=== PATIENT | female | born 1945 | race Caucasian/White ===

== ENCOUNTER 2021-11-08 11:13 | Inpatient (IN) | payer MEDICARE ==
[~2021-11-08] VITALS: Ht 165.1 cm; Wt 66.8 kg
[2021-11-08 11:38] LABS: BASOPHILS % (AUTO) 0.1 % (0-1); EOSINOPHILS % (AUTO) 0.1 % (0-6); HEMATOCRIT 35.1 % (35.0-45.0); HEMOGLOBIN 11.8 g/dl (12.0-16.0); LYMPHOCYTES # (AUTO) 0.5 X10'3 (1.1-4.8); LYMPHOCYTES % (AUTO) 5.2 % (21-51); MEAN CORPUSCULAR HEMOGLOBIN 30.6 PG (27.0-31.0); MEAN CORPUSCULAR HGB CONC 33.7 g/dL (33.0-36.5); MEAN CORPUSCULAR VOLUME 90.8 FL (78-98); MEAN PLATELET VOLUME 6.3 FL (7.4-10.4); MONOCYTES # (AUTO) 1.1 X10'3 (0-0.9); MONOCYTES % (AUTO) 10.9 % (2-12); NEUTROPHILS # (AUTO) 8.7 X10'3 (1.8-7.7); NEUTROPHILS % (AUTO) 83.7 % (42-75); PLATELET COUNT 198 X10'3 (140-440); RED BLOOD COUNT 3.87 X10'6 (4.20-5.60); RED CELL DISTRIBUTION WIDTH 13.1 % (11.5-14.5); WHITE BLOOD COUNT 10.3 X10'3 (4.5-11.0)
[2021-11-08] MEDS ORDERED: metoprolol tartrate 1mg/ml inj IV ONE (11:55)
--- NOTE | 2021-11-08 11:57 | NUR ---
FAMILY CALLED AND LEFT PHONE NUMBER CARYLN: [phone]
[2021-11-08 12:04] LABS: ALANINE AMINOTRANSFERASE 26 U/L (12-78); ALBUMIN 3.8 G/DL (3.4-5.0); ALKALINE PHOSPHATASE 96 IU/L (46-116); ANION GAP 12 (8-16); ASPARTATE AMINO TRANSFERASE 35 U/L (10-37); BILIRUBIN,TOTAL 0.7 MG/DL (0.1-1.0); BLOOD UREA NITROGEN 11 MG/DL (7-18); CALCIUM 9.2 MG/DL (8.5-10.1); CHLORIDE 91 MMOL/L (99-107); CREATININE 0.92 MG/DL (0.40-0.90); D-DIMER 0.54 MG/L FEU (0-0.50); GLUCOSE 137 MG/DL (70-104); POTASSIUM 4.6 MMOL/L (3.5-5.1); SODIUM 125 MMOL/L (135-145); TOTAL PROTEIN 7.7 G/DL (6.4-8.2); eGFR 60 ML/MIN
--- NOTE | 2021-11-08 14:05 | NUR ---
TIMOTHY PEDRO AT BEDSIDE TO ASSESS PATIENT.
[2021-11-08] MEDS ORDERED: magnesium Cl slow-release 64mg tablet PO PRN (14:30)
[2021-11-08] MEDS ORDERED: PERFLUTREN PROTEIN-A MICROSPHR (Optison) 0.22 MG/ML 3ML VIAL IV ONE (14:30)
[2021-11-08] MEDS ORDERED: ondansetron/PF 4mg/2ml inj IV PRN (14:30)
[2021-11-08] MEDS ORDERED: magnesium 2GM in 50ml NS 50 ML IV PRN (14:30)
[2021-11-08] MEDS ORDERED: magnesium hydroxide 30ml (MOM) UD suspension PO PRN (14:30)
[2021-11-08] MEDS ORDERED: acetaminophen 325mg tablet PO PRN (14:30)
[2021-11-08] MEDS ORDERED: mag hydrox/Alum hydrox/simeth 30ml oral suspension PO PRN (14:30)
[2021-11-08] MEDS ORDERED: magnesium 4gm in 100ml NS 100 ML IV PRN (14:30)
[2021-11-08] MEDS ORDERED: potassium CL 10mEq/100ml bag 100 ML IV PRN (14:30)
[2021-11-08] MEDS ORDERED: morphine 2 MG/ML inj. syringe IV PRN (14:30)
[2021-11-08] MEDS ORDERED: potassium Cl 20 mEq SR tablet PO PRN ×2 (14:30)
[2021-11-08] MEDS ORDERED: LISI5TAB22 PO (14:42)
[2021-11-08] MEDS ORDERED: FLUT1BLS4 IH (14:42)
[2021-11-08] MEDS ORDERED: IPRA3AMP31 NEB (14:42)
[2021-11-08] MEDS ORDERED: ipratropium/albuterol 3ml nebule NEB PRN (14:45)
[2021-11-08] MEDS ORDERED: aspirin 81mg tab.chew PO ONE (14:45)
[2021-11-08] MEDS ORDERED: furosemide 20 MG/2 ML vial IV ONE (14:55)
[2021-11-08] MEDS ORDERED: heparin 25,000 UNIT/250ml bag 250 ML IV SCH (15:05)
[2021-11-08] MEDS ORDERED: heparin 10,000 units/1 ML INJ IV ONE (15:05)
[2021-11-08] MEDS ORDERED: heparin 10,000 units/1 ML INJ IV PRN (15:05)
[2021-11-08 15:17] LABS: CHOLESTEROL 217 MG/DL (0-200); HDL CHOLESTEROL 108 MG/DL (35-60); LDL CHOLESTEROL 96 MG/DL (50-100); TRIGLYCERIDES 36 MG/DL (20-135)
[2021-11-08 15:24] LABS: BASOPHILS % (AUTO) 0.1 % (0-1); EOSINOPHILS % (AUTO) 0.3 % (0-6); HEMATOCRIT 32.5 % (35.0-45.0); HEMOGLOBIN 10.9 g/dl (12.0-16.0); LYMPHOCYTES # (AUTO) 0.5 X10'3 (1.1-4.8); LYMPHOCYTES % (AUTO) 7.6 % (21-51); MEAN CORPUSCULAR HGB CONC 33.4 g/dL (33.0-36.5); MEAN CORPUSCULAR VOLUME 89.7 FL (78-98); MEAN PLATELET VOLUME 6.7 FL (7.4-10.4); MONOCYTES # (AUTO) 0.9 X10'3 (0-0.9); MONOCYTES % (AUTO) 12.8 % (2-12); NEUTROPHILS # (AUTO) 5.6 X10'3 (1.8-7.7); NEUTROPHILS % (AUTO) 79.2 % (42-75); PLATELET COUNT 171 X10'3 (140-440); RED BLOOD COUNT 3.63 X10'6 (4.20-5.60); RED CELL DISTRIBUTION WIDTH 13.5 % (11.5-14.5); WHITE BLOOD COUNT 7.1 X10'3 (4.5-11.0)
[2021-11-08 15:36] LABS: APTT 29 SECONDS (22-32)
[2021-11-08] MEDS: ipratropium/albuterol 3ml nebule IH SCH ×2 (16:51→20:14)
--- NOTE | 2021-11-08 18:15 | NUR ---
Patient in room PCU 3016. I have received report from MYLA Webb and had the opportunity to ask questions and assume patient care.
[2021-11-08] MEDS: docusate sod 100mg capsule PO SCH (19:48)
[2021-11-08] MEDS: K and/or MAG REPLACEMENT MC SCH (20:00)
[2021-11-08] MEDS: budesonide 0.5mg/2ml UD nebule IH SCH (20:14)
[2021-11-09] MEDS: ipratropium/albuterol 3ml nebule IH SCH ×4 (03:00→20:51)
[2021-11-09 06:00] VITALS: BP 131/65
[2021-11-09 06:38] LABS: BASOPHILS % (AUTO) 0.3 % (0-1); EOSINOPHILS # (AUTO) 0.2 X10'3 (0-0.9); EOSINOPHILS % (AUTO) 2.8 % (0-6); HEMATOCRIT 32.6 % (35.0-45.0); LYMPHOCYTES # (AUTO) 0.7 X10'3 (1.1-4.8); LYMPHOCYTES % (AUTO) 12.7 % (21-51); MEAN CORPUSCULAR HEMOGLOBIN 30.4 PG (27.0-31.0); MEAN CORPUSCULAR HGB CONC 33.9 g/dL (33.0-36.5); MEAN CORPUSCULAR VOLUME 89.8 FL (78-98); MEAN PLATELET VOLUME 6.6 FL (7.4-10.4); MONOCYTES # (AUTO) 0.7 X10'3 (0-0.9); MONOCYTES % (AUTO) 12.9 % (2-12); NEUTROPHILS % (AUTO) 71.3 % (42-75); PLATELET COUNT 190 X10'3 (140-440); RED BLOOD COUNT 3.63 X10'6 (4.20-5.60); RED CELL DISTRIBUTION WIDTH 13.2 % (11.5-14.5); WHITE BLOOD COUNT 5.7 X10'3 (4.5-11.0)
--- NOTE | 2021-11-09 06:39 | NUR ---
Problems reprioritized. Patient report given, questions answered & plan of care reviewed with Tracey RN.
[2021-11-09 06:53] LABS: ALBUMIN 3.2 G/DL (3.4-5.0); ANION GAP 6 (8-16); BLOOD UREA NITROGEN 16 MG/DL (7-18); CALCIUM 8.9 MG/DL (8.5-10.1); CHLORIDE 97 MMOL/L (99-107); CREATININE 0.84 MG/DL (0.40-0.90); GLUCOSE 106 MG/DL (70-104); POTASSIUM 4.4 MMOL/L (3.5-5.1); SODIUM 132 MMOL/L (135-145); TOTAL CARBON DIOXIDE 29.5 MMOL/L (24-32); eGFR 66 ML/MIN
[2021-11-09] MEDS: budesonide 0.5mg/2ml UD nebule IH SCH ×2 (07:47→20:51)
[2021-11-09] MEDS: lisinopril 5mg tablet PO SCH (07:54)
[2021-11-09] MEDS: aspirin 81mg, enteric-coated 1 TAB TABLET.DR PO SCH (07:54)
[2021-11-09] MEDS: docusate sod 100mg capsule PO SCH ×2 (07:54→20:13)
[2021-11-09] MEDS: K and/or MAG REPLACEMENT MC SCH ×2 (08:00→20:00)
[2021-11-09] MEDS ORDERED: lisinopril 5mg tablet PO SCH (08:00)
[2021-11-09] MEDS: spironolactone 25 MG tablet PO SCH (08:30)
[2021-11-09] MEDS ORDERED: verapamil 2.5 mg/ml inj IV ONE (09:13)
[2021-11-09] MEDS ORDERED: iohexol 350 MG/ML 50ML vial IV ONE (09:14)
[2021-11-09] MEDS ORDERED: LIDOcaine 1% (10mg/ml)w/preservative inj. 20ml MDV ONE (09:14)
[2021-11-09] MEDS ORDERED: midazolam 1 mg/ML 2ml injection ONE (09:14)
[2021-11-09] MEDS ORDERED: fentaNYL/PF 50MCG/1 ML 2ML syringe ONE (09:14)
[2021-11-09] MEDS ORDERED: nitroGLYCERIN-Tridil 50MG/D5W 250 ML IV ONE (09:14)
[2021-11-09] MEDS ORDERED: iohexol 350MG/ML 100ml bottle IV ONE (09:14)
[2021-11-09] MEDS ORDERED: heparin 1,000unit/ml 10ml vial 10 ML ONE (09:14)
[2021-11-09 11:00] VITALS: BP 134/56
[2021-11-09 11:42] LABS: ISTAT HGB ART 9.9 g/dl (12.0-16.0); ISTAT Hct ART 29 %PCV (35-48); ISTAT Hct MIX 30 %PCV (35-48); ISTAT O2 SATURATION ARTERIAL 99 % (95-98); ISTAT O2 SATURATION MIX VENOUS 73 % (60-80); ISTAT SOURCE BLNK
[2021-11-09 15:00] VITALS: BP 98/56
[2021-11-09 18:00] VITALS: BP 106/68
[2021-11-09] MEDS: carVEDilol 3.125mg tablet PO SCH (20:13)
[2021-11-09 22:00] VITALS: BP 97/46
[2021-11-10 02:00] VITALS: BP 111/53
[2021-11-10] MEDS: ipratropium/albuterol 3ml nebule IH SCH ×2 (02:26→07:40)
[2021-11-10 06:00] VITALS: BP 117/54
[2021-11-10 06:03] LABS: BASOPHILS % (AUTO) 0.6 % (0-1); EOSINOPHILS # (AUTO) 0.4 X10'3 (0-0.9); HEMATOCRIT 34.7 % (35.0-45.0); HEMOGLOBIN 11.5 g/dl (12.0-16.0); LYMPHOCYTES % (AUTO) 14.9 % (21-51); MEAN CORPUSCULAR HEMOGLOBIN 29.7 PG (27.0-31.0); MEAN CORPUSCULAR HGB CONC 33.2 g/dL (33.0-36.5); MEAN CORPUSCULAR VOLUME 89.6 FL (78-98); MEAN PLATELET VOLUME 6.8 FL (7.4-10.4); MONOCYTES # (AUTO) 0.7 X10'3 (0-0.9); MONOCYTES % (AUTO) 10.6 % (2-12); NEUTROPHILS # (AUTO) 4.4 X10'3 (1.8-7.7); NEUTROPHILS % (AUTO) 67.9 % (42-75); PLATELET COUNT 223 X10'3 (140-440); RED BLOOD COUNT 3.87 X10'6 (4.20-5.60); RED CELL DISTRIBUTION WIDTH 13.4 % (11.5-14.5); WHITE BLOOD COUNT 6.5 X10'3 (4.5-11.0)
--- NOTE | 2021-11-10 06:23 | NUR ---
Problems reprioritized. Patient report given, questions answered & plan of care reviewed with Chava LANZA.
[2021-11-10 06:35] LABS: ALBUMIN 3.2 G/DL (3.4-5.0); ANION GAP 10 (8-16); BLOOD UREA NITROGEN 20 MG/DL (7-18); BUN/CREATININE RATIO 24.4 (6.6-38.0); CALCIUM 9.2 MG/DL (8.5-10.1); CHLORIDE 98 MMOL/L (99-107); CREATININE 0.82 MG/DL (0.40-0.90); GLUCOSE 99 MG/DL (70-104); POTASSIUM 4.5 MMOL/L (3.5-5.1); SODIUM 130 MMOL/L (135-145); TOTAL CARBON DIOXIDE 21.6 MMOL/L (24-32); eGFR 68 ML/MIN
[2021-11-10] MEDS: budesonide 0.5mg/2ml UD nebule IH SCH (07:40)
[2021-11-10] MEDS: docusate sod 100mg capsule PO SCH (08:40)
[2021-11-10] MEDS: aspirin 81mg, enteric-coated 1 TAB TABLET.DR PO SCH (08:40)
[2021-11-10] MEDS: lisinopril 5mg tablet PO SCH (08:41)
[2021-11-10] MEDS: carVEDilol 3.125mg tablet PO SCH (08:41)
[2021-11-10] MEDS: spironolactone 25 MG tablet PO SCH (08:41)
[2021-11-10] MEDS: K and/or MAG REPLACEMENT MC SCH (08:43)
[2021-11-10] MEDS ORDERED: SPIR25TA PO (10:36)
[2021-11-10] MEDS ORDERED: COR3.125T PO (10:36)
[2021-11-10] MEDS ORDERED: ASPI-1071 PO (10:36)
[2021-11-10 11:00] VITALS: BP 112/56
--- NOTE | 2021-11-10 12:28 | NUR ---
Patient discharge to home, discharged instructions given, verbalized understanding. Tele box and PIV removed, pressure dressing applied. all belonging packed and will take home with.
== END 2021-11-10 12:50 | disposition home or self-care (01) | DRG 280 ==
LOC: ER 11:14 → ED HOLD 14:29 → PCU 3S 17:33
PROVIDERS: ADMIT Family Medicine; ATTEND Family Medicine
PROC: 4A023N8 Measurement of Cardiac Sampling and Pressure, Bilateral, Percutaneous Approach (ICD-10-PCS; principal; 2021-11-09)
PROC: B2111ZZ Fluoroscopy of Multiple Coronary Arteries using Low Osmolar Contrast (ICD-10-PCS; 2021-11-09)
PROC: B2151ZZ Fluoroscopy of Left Heart using Low Osmolar Contrast (ICD-10-PCS; 2021-11-09)
DX: I51.81 Takotsubo syndrome (principal); I50.23 Acute on chronic systolic (congestive) heart failure; I21.A1 Myocardial infarction type 2; E87.1 Hypo-osmolality and hyponatremia; I45.10 Unspecified right bundle-branch block; J43.9 Emphysema, unspecified; Z82.49 Family history of ischemic heart disease and other diseases of the circulatory system; Z82.5 Family history of asthma and other chronic lower respiratory diseases; Z87.891 Personal history of nicotine dependence; Z88.0 Allergy status to penicillin
CPT/HCPCS: 36415; 71045; 76937; 80048; 80053; 80061; 82803; 83735; 83880; 84484; 85014; 85025; 85379; 85610; 85730; 87081; 93005; 93306; 93460; 94640; 94760; 99152; 99153; 99285; A4620; A5120; A6258; C1751; C1769; C1894; G0378; J1644; J1940; J2250; J3010; J3490; Q9967

== ENCOUNTER 2021-12-03 02:09 | Inpatient (IN) | payer MEDICARE ==
[~2021-12-03] VITALS: Ht 165.1 cm; Wt 63.6 kg
[~2021-12-03 02:09] MED LIST: ASPI-1071 PO; COR3.125T PO; FLUT1BLS4 IH; IPRA3AMP31 NEB; LISI5TAB22 PO; SPIR25TA PO
[2021-12-03 03:14] LABS: BASOPHILS % (AUTO) 0.7 % (0-1); EOSINOPHILS # (AUTO) 0.4 X10'3 (0-0.9); EOSINOPHILS % (AUTO) 9.5 % (0-6); HEMATOCRIT 32.7 % (35.0-45.0); LYMPHOCYTES # (AUTO) 0.8 X10'3 (1.1-4.8); LYMPHOCYTES % (AUTO) 17.8 % (21-51); MEAN CORPUSCULAR HEMOGLOBIN 29.6 PG (27.0-31.0); MEAN CORPUSCULAR HGB CONC 33.5 g/dL (33.0-36.5); MEAN CORPUSCULAR VOLUME 88.2 FL (78-98); MEAN PLATELET VOLUME 6.2 FL (7.4-10.4); MONOCYTES # (AUTO) 0.5 X10'3 (0-0.9); MONOCYTES % (AUTO) 11.7 % (2-12); NEUTROPHILS # (AUTO) 2.6 X10'3 (1.8-7.7); NEUTROPHILS % (AUTO) 60.3 % (42-75); PLATELET COUNT 188 X10'3 (140-440); RED BLOOD COUNT 3.71 X10'6 (4.20-5.60); RED CELL DISTRIBUTION WIDTH 13.3 % (11.5-14.5); WHITE BLOOD COUNT 4.3 X10'3 (4.5-11.0)
[2021-12-03 03:29] LABS: ALANINE AMINOTRANSFERASE 28 U/L (12-78); ALBUMIN 3.5 G/DL (3.4-5.0); ALKALINE PHOSPHATASE 86 IU/L (46-116); ANION GAP 6 (8-16); ASPARTATE AMINO TRANSFERASE 24 U/L (10-37); BILIRUBIN,TOTAL 0.4 MG/DL (0.1-1.0); BLOOD UREA NITROGEN 13 MG/DL (7-18); BUN/CREATININE RATIO 16.9 (6.6-38.0); CALCIUM 8.9 MG/DL (8.5-10.1); CHLORIDE 92 MMOL/L (99-107); CREATININE 0.77 MG/DL (0.40-0.90); GLUCOSE 117 MG/DL (70-104); POTASSIUM 4.2 MMOL/L (3.5-5.1); SODIUM 124 MMOL/L (135-145); TOTAL CARBON DIOXIDE 25.6 MMOL/L (24-32); eGFR 73 ML/MIN
[2021-12-03] MEDS ORDERED: sodium chloride 1gm tablet PO ONE (03:50)
[2021-12-03] MEDS ORDERED: methylPREDNISolone sod succ 125mg/2ml vial IV ONE (04:10)
--- NOTE | 2021-12-03 04:40 | NUR ---
No acute/resp distress. PIV site c/d/i s complication or adverse reaction. Bed in lowest position, wheels locked. CM, NIBP, Pulse Ox in place. Pt laying supine, able to reposition self prn.
[2021-12-03] MEDS ORDERED: magnesium 4gm in 100ml NS 100 ML IV PRN (05:55)
[2021-12-03] MEDS ORDERED: acetaminophen 325mg tablet PO PRN ×2 (05:55)
[2021-12-03] MEDS ORDERED: morphine 2 MG/ML inj. syringe IV PRN (05:55)
[2021-12-03] MEDS ORDERED: normal saline 1000ml 1,000 ML IV SCH (05:55)
[2021-12-03] MEDS ORDERED: magnesium hydroxide 30ml (MOM) UD suspension PO PRN (05:55)
[2021-12-03] MEDS ORDERED: mag hydrox/Alum hydrox/simeth 30ml oral suspension PO PRN (05:55)
[2021-12-03] MEDS ORDERED: magnesium Cl slow-release 64mg tablet PO PRN (05:55)
[2021-12-03] MEDS ORDERED: potassium Cl 20 mEq SR tablet PO PRN ×2 (05:55)
[2021-12-03] MEDS ORDERED: HYDROcodone/acetaminophen 5mg/325mg tablet PO PRN (05:55)
[2021-12-03] MEDS ORDERED: magnesium 2GM in 50ml NS 50 ML IV PRN (05:55)
[2021-12-03] MEDS ORDERED: ondansetron/PF 4mg/2ml inj IV PRN (05:55)
[2021-12-03] MEDS ORDERED: potassium CL 10mEq/100ml bag 100 ML IV PRN (05:55)
--- NOTE | 2021-12-03 05:59 | NUR ---
Pt up to bedside commode with assistance. [place], alert, no acute/resp distress.
--- NOTE | 2021-12-03 06:07 | NUR ---
Dr Whittaker to pt bedside. No pt acute/resp distress. PIV site c/d/i s complication or adverse reaction. Bed in lowest position, wheels locked. CM, NIBP, Pulse Ox in place. Pt laying supine, able to reposition self prn. Handoff report to Breanne LANZA
[2021-12-03] MEDS: levoFLOXACIN-Levaquin 500mg/D5 100 ML IV SCH (07:59)
[2021-12-03] MEDS: K and/or MAG REPLACEMENT MC SCH ×2 (08:00→20:00)
[2021-12-03] MEDS: methylPREDNISolone sod succ 125mg/2ml vial IV SCH ×2 (08:01→20:37)
[2021-12-03] MEDS: heparin, porcine 5000 units/ml vial SQ SCH ×2 (08:01→20:36)
--- NOTE | 2021-12-03 08:39 | NUR ---
pt eating breakfast.
[2021-12-03] MEDS: albuterol 2.5 MG/3 ML nebule NEB SCH ×2 (09:46→10:28)
[2021-12-03] MEDS ORDERED: MULT-1133 PO (11:30)
[2021-12-03] MEDS ORDERED: CARV3.122 PO (11:30)
[2021-12-03] MEDS ORDERED: ASPI81TA52 PO (11:30)
[2021-12-03] MEDS ORDERED: CRAN1CAP5 PO (11:30)
[2021-12-03] MEDS ORDERED: SPIR25TA5 PO (11:30)
[2021-12-03] MEDS ORDERED: CHOL100046 PO (11:30)
[2021-12-03] MEDS: aspirin 81mg, enteric-coated 1 TAB TABLET.DR PO SCH (12:13)
[2021-12-03] MEDS: carVEDilol 3.125mg tablet PO SCH ×2 (12:14→22:29)
[2021-12-03] MEDS: multivitamins, therapeutics tablet PO SCH (12:14)
[2021-12-03] MEDS: ipratropium/albuterol 3ml nebule NEB SCH ×4 (13:12→23:55)
--- NOTE | 2021-12-03 21:22 | NUR ---
Report called to floor. Pt pink, alert, no acute/resp distress. PIV site c/d/i s complication or adverse.
[2021-12-03 22:00] VITALS: BP 150/76
[2021-12-04] MEDS: ipratropium/albuterol 3ml nebule NEB SCH ×4 (03:33→15:00)
[2021-12-04 06:02] LABS: BASOPHILS % (AUTO) 0.1 % (0-1); EOSINOPHILS % (AUTO) 0 % (0-6); HEMATOCRIT 32.3 % (35.0-45.0); HEMOGLOBIN 11.2 g/dl (12.0-16.0); LYMPHOCYTES # (AUTO) 0.6 X10'3 (1.1-4.8); LYMPHOCYTES % (AUTO) 9.5 % (21-51); MEAN CORPUSCULAR HEMOGLOBIN 30.5 PG (27.0-31.0); MEAN CORPUSCULAR HGB CONC 34.7 g/dL (33.0-36.5); MEAN CORPUSCULAR VOLUME 87.9 FL (78-98); MEAN PLATELET VOLUME 6.4 FL (7.4-10.4); MONOCYTES # (AUTO) 0.3 X10'3 (0-0.9); MONOCYTES % (AUTO) 5.5 % (2-12); NEUTROPHILS # (AUTO) 5.2 X10'3 (1.8-7.7); NEUTROPHILS % (AUTO) 84.9 % (42-75); PLATELET COUNT 214 X10'3 (140-440); RED BLOOD COUNT 3.68 X10'6 (4.20-5.60); RED CELL DISTRIBUTION WIDTH 13.3 % (11.5-14.5); WHITE BLOOD COUNT 6.2 X10'3 (4.5-11.0)
[2021-12-04 06:19] LABS: ALANINE AMINOTRANSFERASE 27 U/L (12-78); ALBUMIN 3.4 G/DL (3.4-5.0); ALKALINE PHOSPHATASE 80 IU/L (46-116); ANION GAP 7 (8-16); ASPARTATE AMINO TRANSFERASE 21 U/L (10-37); BILIRUBIN,TOTAL 0.4 MG/DL (0.1-1.0); BLOOD UREA NITROGEN 20 MG/DL (7-18); BUN/CREATININE RATIO 20.8 (6.6-38.0); CHLORIDE 93 MMOL/L (99-107); CREATININE 0.96 MG/DL (0.40-0.90); GLUCOSE 140 MG/DL (70-104); MAGNESIUM 1.9 MG/DL (1.5-2.4); POTASSIUM 5.1 MMOL/L (3.5-5.1); SODIUM 125 MMOL/L (135-145); TOTAL CARBON DIOXIDE 25.1 MMOL/L (24-32); TOTAL PROTEIN 6.8 G/DL (6.4-8.2); eGFR 57 ML/MIN
--- NOTE | 2021-12-04 06:21 | NUR ---
Problems reprioritized. Patient report given, questions answered & plan of care reviewed with MYLA Grant.
[2021-12-04 07:00] VITALS: BP 126/60
[2021-12-04] MEDS: K and/or MAG REPLACEMENT MC SCH (08:00)
[2021-12-04] MEDS ORDERED: Fluticasone/Umeclidin/Vilanter (Trelegy Ellipta 100-62.5-25) INHALER IH SCH (08:00)
[2021-12-04] MEDS ORDERED: lisinopril 5mg tablet PO SCH (08:00)
[2021-12-04] MEDS ORDERED: VIT C PO SCH (08:00)
[2021-12-04] MEDS ORDERED: CRANBERRY EXTRACT PO SCH (08:00)
[2021-12-04] MEDS ORDERED: spironolactone 25 MG tablet PO SCH (08:00)
[2021-12-04] MEDS: levoFLOXACIN-Levaquin 500mg/D5 100 ML IV SCH (08:02)
[2021-12-04] MEDS: methylPREDNISolone sod succ 125mg/2ml vial IV SCH (08:03)
[2021-12-04] MEDS: aspirin 81mg, enteric-coated 1 TAB TABLET.DR PO SCH (08:03)
[2021-12-04] MEDS: heparin, porcine 5000 units/ml vial SQ SCH (08:03)
[2021-12-04] MEDS: multivitamins, therapeutics tablet PO SCH (08:04)
[2021-12-04] MEDS: carVEDilol 3.125mg tablet PO SCH (08:06)
[2021-12-04 10:00] VITALS: BP 127/57
[2021-12-04 14:00] VITALS: BP 127/59
--- NOTE | 2021-12-04 15:00 | NUR ---
Message: Radha Thompson [id number] Pt. thinks she is discharged. No orders. Is she? PT. recommending more PT. Juanita [phone]
[2021-12-04] MEDS ORDERED: LEVO250T43 PO (15:31)
[2021-12-04] MEDS ORDERED: PRED10TA23 PO (15:31)
--- NOTE | 2021-12-04 17:00 | NUR ---
DISCHARGE NOTE: Reviewed discharge paperwork with pt. She is aware her sodium is low and that it is a chronic issue that she will need to speak with her PCP about. She is concerned her medications will not be ready in time for her to [facility] tonight as the pharmacy closes at 6pm but this RN called [facility] and they are already in the process of filling the prescriptions so pt. was reassured. Resource RN DC'd PIV. No s/sx bleeding noted. Pt. states she feels much better than when she came in and that she just now was able to ambulate to the bathroom w/o getting SOB. Discussed new medications and possible ASE. Daughter at bedside gathering pt. belongings and listening to discharge information as well. They both had the opportunities to ask questions, but had no concerns. Pt. escorted with her stuff downstairs to her daughter's car where she was discharged, planning to live with daughter for awhile to recoup and rehabilitate with help.
[2021-12-05] MEDS ORDERED: levoFLOXACIN 250mg tablet PO SCH (11:00)
== END 2021-12-04 17:00 | disposition home or self-care (01) | DRG 191 ==
LOC: ER 02:10 → ED HOLD 05:55 → ORTHO 4S 21:45
PROVIDERS: ADMIT Internal Medicine; ATTEND Family Medicine
DX: J44.1 Chronic obstructive pulmonary disease with (acute) exacerbation (principal); E87.1 Hypo-osmolality and hyponatremia; I42.9 Cardiomyopathy, unspecified; Z20.822 Contact with and (suspected) exposure to COVID-19; F10.10 Alcohol abuse, uncomplicated; Z79.899 Other long term (current) drug therapy; Z88.0 Allergy status to penicillin
CPT/HCPCS: 36415; 71045; 80053; 83605; 83735; 83880; 84484; 85025; 87040; 87081; 87635; 93005; 94640; 94760; 96374; 97116; 97161; 97530; 99285; G0378; J1644; J1956; J2930; J7030

== ENCOUNTER 2021-12-31 13:03 | Emergency (ER) | payer MEDICARE ==
[~2021-12-31] VITALS: Ht 165.1 cm; Wt 62.0 kg
[~2021-12-31 13:03] MED LIST changes: -ASPI-1071 PO; +ASPI81TA52 PO; +CARV3.122 PO; +CHOL100046 PO; -COR3.125T PO; +CRAN1CAP5 PO; +LEVO250T43 PO; +MULT-1133 PO; +PRED10TA23 PO; -SPIR25TA PO; +SPIR25TA5 PO
--- NOTE | 2021-12-31 13:34 | NUR ---
[id number]
[2021-12-31 14:17] LABS: BASOPHILS % (AUTO) 0.7 % (0-1); EOSINOPHILS # (AUTO) 0.5 X10'3 (0-0.9); EOSINOPHILS % (AUTO) 13.4 % (0-6); HEMATOCRIT 32.5 % (35.0-45.0); HEMOGLOBIN 11.2 g/dl (12.0-16.0); LYMPHOCYTES # (AUTO) 0.9 X10'3 (1.1-4.8); LYMPHOCYTES % (AUTO) 23.9 % (21-51); MEAN CORPUSCULAR HEMOGLOBIN 30.6 PG (27.0-31.0); MEAN CORPUSCULAR HGB CONC 34.3 g/dL (33.0-36.5); MEAN CORPUSCULAR VOLUME 89.2 FL (78-98); MEAN PLATELET VOLUME 5.9 FL (7.4-10.4); MONOCYTES # (AUTO) 0.4 X10'3 (0-0.9); MONOCYTES % (AUTO) 11.4 % (2-12); NEUTROPHILS % (AUTO) 50.6 % (42-75); PLATELET COUNT 209 X10'3 (140-440); RED BLOOD COUNT 3.65 X10'6 (4.20-5.60); RED CELL DISTRIBUTION WIDTH 13.5 % (11.5-14.5); WHITE BLOOD COUNT 3.9 X10'3 (4.5-11.0)
[2021-12-31 14:30] LABS: ALANINE AMINOTRANSFERASE 25 U/L (12-78); ALBUMIN 3.5 G/DL (3.4-5.0); ALBUMIN/GLOBULIN RATIO 1.1 (1.1-1.5); ALKALINE PHOSPHATASE 79 IU/L (46-116); ANION GAP 4 (8-16); ASPARTATE AMINO TRANSFERASE 19 U/L (10-37); BILIRUBIN,TOTAL 0.3 MG/DL (0.1-1.0); BLOOD UREA NITROGEN 15 MG/DL (7-18); BUN/CREATININE RATIO 17.6 (6.6-38.0); CALCIUM 9.1 MG/DL (8.5-10.1); CHLORIDE 98 MMOL/L (99-107); CREATININE 0.85 MG/DL (0.40-0.90); GLUCOSE 95 MG/DL (70-104); POTASSIUM 4.5 MMOL/L (3.5-5.1); SODIUM 131 MMOL/L (135-145); TOTAL CARBON DIOXIDE 28.7 MMOL/L (24-32); TOTAL PROTEIN 6.8 G/DL (6.4-8.2); eGFR 65 ML/MIN
[2021-12-31] MEDS ORDERED: ipratropium/albuterol 3ml nebule NEB ONE (15:10)
[2021-12-31 16:37] VITALS: BP 147/73
== END 2021-12-31 16:39 | disposition home or self-care (01) ==
LOC: ER 13:04
DX: J43.9 Emphysema, unspecified (principal); Z79.899 Other long term (current) drug therapy; Z79.82 Long term (current) use of aspirin; Z79.2 Long term (current) use of antibiotics; Z88.0 Allergy status to penicillin
CPT/HCPCS: 36415; 71045; 80053; 83880; 84484; 85025; 93005; 94640; 94760; 99285